=== PATIENT | female | born 1990 ===

== ENCOUNTER → 2016-09-15 | Day surgery (SDC) | payer OTHER ==
[~2016-09-15] VITALS: Ht 170.2 cm; Wt 60.0 kg
[~2016-09-15] MED LIST: ERGO1CAP35 PO; FENTANYL CITRATE INJ 50 MCG/1 ML 2 ML VIAL ONE; FERR1TAB23 PO; FOLI1TAB7 PO; MESA1.2T PO; MIDAZOLAM HCL 5 MG/ML 1 ML VIAL ONE; MULT-506 PO; SODIUM CHLORIDE 0.9% 500ML 500 ML IV ONE
[2016-09-15 11:13] VITALS: Ht 170.2 cm; Wt 60.0 kg
--- NOTE | 2016-09-15 12:35 | Endo History and Physical ---
History & Physical Date of Service: Sep 15, 2016. Chief Complaint: ULCERATIVE COLITIS Referring Physician: [facility] History of Present Illness 26 yo female who presents for Colonoscopy secondary to ulcerative colitis. Past Surgical History Hx Cardiac Surgery: No Hx Internal Defibrillator: No Hx Pacemaker: No Hx Abdominal Surgery: No Hx of Implantable Prosthesis: No Hx Post-Op Nausea and Vomiting: No Hx Cancer Surgery: No Hx Thoracic Surgery: No Hx Orthopedic: No Hx Urinary Tract Surgery: No Family History None Social History Smoking Status: Never Smoker Hx Substance Use: No Hx Alcohol Use: Yes (OCCASIONAL) Allergies Coded Allergies: Mesalamine (Unverified Allergy, Severe, itching,rash, 09/15/16) Nickel (Verified Allergy, Unknown, RASH, 09/15/16) Current Medications Reported Home Medications Medications Dose Route/Sig Max Daily Dose Days Date Category Iron (Ferrous Sulfate) 325 Mg Tab 1 Tab PO 2-3X/WEEK 09/13/16 Reported Lialda (Mesalamine) 1.2 Gm Tab 2 Tab PO BID 09/13/16 Reported Vitamin D Cap (Ergocalciferol) 50,000 Interunit Cap 50,000 Inter.unit PO WK 02/24/16 Reported Folvite (Folic Acid) 1 Mg Tab 1 Mg PO QAM 02/24/16 Reported Multivitamin (Multivitamins) Tab 1 Tab PO QAM 02/24/16 Reported Vital Signs Weight (Kilograms): 60.00 Height (Feet): 5 Height (Inches): 7 Date Time Temp Pulse Resp B/P Pulse Ox O2 Delivery O2 Flow Rate FiO2 09/15/16 12:32 62 16 95/44 100 Nasal Cannula 3 09/15/16 12:16 52 16 103/56 100 Nasal Cannula 3 09/15/16 11:30 36.8 57 16 93/54 97 Room Air Physical Exam General Appearance: WD/WN, no apparent distress Respiratory/Chest: Auscultation: breath sounds normal Cardiovascular: Heart Auscultation: RRR Abdomen: Bowel Sounds: normal Inspection & Palpation: soft, non-distended, no tenderness, guarding & rebound Assessment and Plan Assessment: 26 yo female who presents for Colonoscopy secondary to ulcerative colitis. Plan: Proceed with colonoscopy.
--- NOTE | 2016-09-15 12:56 | Discharge Instructions ---
Endoscopy Patient Instructions Date / Procedure(s) Performed Sep 15, 2016. Colonoscopy Allergy Information Coded Allergies: Mesalamine (Unverified Allergy, Severe, itching,rash, 09/15/16) Nickel (Verified Allergy, Unknown, RASH, 09/15/16) Discharge Date / Findings Sep 15, 2016. Ulcerative proctitis s/p biopsies Random colon biopsies Medication Instructions OK to resume all medications today as prescribed Reported Home Medications Medications Dose Route/Sig Max Daily Dose Days Date Category Iron (Ferrous Sulfate) 325 Mg Tab 1 Tab PO 2-3X/WEEK 09/13/16 Reported Lialda (Mesalamine) 1.2 Gm Tab 2 Tab PO BID 09/13/16 Reported Vitamin D Cap (Ergocalciferol) 50,000 Interunit Cap 50,000 Inter.unit PO WK 02/24/16 Reported Folvite (Folic Acid) 1 Mg Tab 1 Mg PO QAM 02/24/16 Reported Multivitamin (Multivitamins) Tab 1 Tab PO QAM 02/24/16 Reported Provider Instructions Activity Restrictions - No exercising or heavy lifting for 24 hours. - Do not drink alcohol the day of the procedure. - Do not drive a car or operate machinery until the day after the procedure. - Do not make any important decisions or sign important papers in 24 hours after the procedure. Following Day: - Return to full activity which may include returning to work/school. Diet Start your diet with liquids and light foods (jello, soup, juice, toast). Then eat your usual diet if not nauseated. Treatment For Common After Affects For mild abdominal pain, bloating, or excessive gas: - Rest - Eat lightly - Lie on right side Follow-Up Information Follow-up with [facility] as scheduled Anesthesia Information What You Should Know You have had a procedure that required some medicine to reduce anxiety and discomfort. This treatment is called moderate sedation. After receiving the treatment, you may be sleepy, but you will be able to breathe on your own. The effects of the treatment may last for several hours. Follow these instructions along with Activity/Diet recommendations noted above: * Do NOT do anything where dizziness or clumsiness would be dangerous. * Rest quietly at home today, then you can be up and about tomorrow. * Have a responsible person stay with you the rest of today. * You may have had an I.V. today. If so, you may take the dressing off later today. Recommendations Call your doctor if: * Trouble breathing * Continuous vomiting for more than 24 hours * Temperature above 101 degrees * Severe abdominal pain or bloating * Pain not relieved by pain medicine ordered * There is increased drainage or redness from any incision * A large amount of rectal bleeding greater than 2-3 tablespoons. (If you had a polyp/s removed or have hemorrhoids, a small amount of blood - from the rectum is to be expected.) * You have any unanswered questions or concerns. IN THE EVENT OF A SERIOUS EMERGENCY, GO TO THE NEAREST EMERGENCY ROOM Your discharge instructions were prepared by provider Toño Parish. Patient Instructions Signature Page Nida Ravi Patient (or Guardian) Signature/Date: I have read and understand the instructions given to me by my caregivers. Caregiver/RN/Doctor Signature/Date: The above-named patient and/or guardian has received patient instructions on this date. + Original Patient Signature Page (only) stays with chart. Please make copy for patient.
--- NOTE | 2016-09-15 13:06 | GI REPORT ---
Procedure Date: 09/15/2016 12:10 PM THIS REPORT HAS BEEN AMENDED Addendum Number: 1 Addendum Date: 09/15/2016 4:44:04 PM Patient did not receive MAC sedation. She received conscious sedation with Versed 5mg and Fentanyl 100micrograms IV in divided doses. Procedure: Colonoscopy Indications: Follow-up of chronic ulcerative proctitis Medicines: Monitored Anesthesia Care Complications: No immediate complications. Estimated Blood Loss: Estimated blood loss: none. Procedure: Pre-Anesthesia Assessment: - Prior to the procedure, a History and Physical was performed, and patient medications and allergies were reviewed. The patient's tolerance of previous anesthesia was also reviewed. The risks and benefits of the procedure and the sedation options and risks were discussed with the patient. All questions were answered, and informed consent was obtained. Prior Anticoagulants: The patient has taken no previous anticoagulant or antiplatelet agents. ASA Grade Assessment: II - A patient with mild systemic disease. After reviewing the risks and benefits, the patient was deemed in satisfactory condition to undergo the procedure. After I obtained informed consent, the scope was passed under direct vision. Throughout the procedure, the patient's blood pressure, pulse, and oxygen saturations were monitored continuously. The scope was introduced through the anus and advanced to the terminal ileum. The colonoscopy was performed without difficulty. The patient tolerated the procedure well. The quality of the bowel preparation was good. The terminal ileum, ileocecal valve, appendiceal orifice, and rectum were photographed. Findings: Inflammation characterized by congestion (edema) and erythema was found. This was mild in severity, and when compared to previous examinations, the findings are improved. Biopsies were taken with a cold forceps for histology. Several random biopsies were obtained with cold forceps for histology in the sigmoid colon, in the descending colon, in the transverse colon and in the ascending colon. Impression: - Inflammation was found secondary to proctitis ulcerative colitis. The findings are improved compared to previous examinations. Biopsied. - Several random biopsies were obtained in the sigmoid colon, in the descending colon, in the transverse colon and in the ascending colon. Recommendation: - Resume previous diet. - Continue present medications. - Repeat colonoscopy for surveillance based on pathology results. - Return to primary care physician as previously scheduled. Toño Parish DO 09/15/2016 1:06:20 PM This report has been signed electronically. Note Initiated On: 09/15/2016 12:10 PM I attest to the content of the Intraoperative Record and orders documented therein, exceptions below Toño Andre Jem, DO 09/15/2016 4:44:58 PM This report has been signed electronically.
[2016-09-15 13:50] VITALS: BP 98/63; PULSE 60; O2SAT 97
== END | disposition home or self-care (01) ==
LOC: C.GI 11:00
PROVIDERS: ATTEND Internal Medicine
DX: K51.20 Ulcerative (chronic) proctitis without complications (principal); Z88.8 Allergy status to other drugs, medicaments and biological substances